=== PATIENT | male | born 2000 | race Caucasian/White ===

== ENCOUNTER 2018-02-22 01:25 | Emergency (ER) | payer MEDICAID ==
[~2018-02-22] VITALS: Ht 165.1 cm; Wt 68.0 kg
== END 2018-02-22 02:00 ==
LOC: ER 01:27
DX: Z04.1 Encounter for examination and observation following transport accident (principal); J45.909 Unspecified asthma, uncomplicated; F12.90 Cannabis use, unspecified, uncomplicated; F15.90 Other stimulant use, unspecified, uncomplicated; F11.90 Opioid use, unspecified, uncomplicated
CPT/HCPCS: 71045; 99283

== ENCOUNTER 2021-09-23 14:40 | Emergency (ER) | payer MEDICAID ==
[~2021-09-23] VITALS: Ht 162.6 cm; Wt 72.7 kg
[2021-09-23 14:46] VITALS: BP 126/86
== END 2021-09-23 15:20 | disposition home or self-care (01) ==
LOC: ER 14:40
DX: Z02.89 Encounter for other administrative examinations (principal); F15.90 Other stimulant use, unspecified, uncomplicated; J45.909 Unspecified asthma, uncomplicated; F12.90 Cannabis use, unspecified, uncomplicated; F11.90 Opioid use, unspecified, uncomplicated
CPT/HCPCS: 99281

== ENCOUNTER 2022-03-31 15:44 | Emergency (ER) | payer MEDICAID ==
[~2022-03-31] VITALS: Ht 162.6 cm; Wt 72.0 kg
[2022-03-31 16:15] VITALS: BP 126/81
[2022-03-31] MEDS ORDERED: HYDROcodone/acetaminophen 5mg/325mg tablet PO ONE (17:25)
[2022-03-31] MEDS ORDERED: HYDR-3965 PO (17:44)
== END 2022-03-31 18:16 | disposition home or self-care (01) ==
LOC: ER 15:44
DX: S92.425A Nondisplaced fracture of distal phalanx of left great toe, initial encounter for closed fracture (principal); M79.675 Pain in left toe(s); J45.909 Unspecified asthma, uncomplicated; F12.90 Cannabis use, unspecified, uncomplicated; F15.90 Other stimulant use, unspecified, uncomplicated; F11.90 Opioid use, unspecified, uncomplicated; Z72.89 Other problems related to lifestyle; Z79.899 Other long term (current) drug therapy; X58.XXXA Exposure to other specified factors, initial encounter; Y93.89 Activity, other specified; Y92.89 Other specified places as the place of occurrence of the external cause; Y99.8 Other external cause status
CPT/HCPCS: 73660; 99283

== ENCOUNTER 2022-05-07 07:25 | Emergency (ER) | payer MEDICAID ==
[~2022-05-07] VITALS: Ht 162.6 cm; Wt 7.0 kg
[2022-05-07 08:04] VITALS: BP 112/72
== END 2022-05-07 11:45 | disposition left against medical advice (07) ==
LOC: ER 07:26
DX: L02.413 Cutaneous abscess of right upper limb (principal); Z53.21 Procedure and treatment not carried out due to patient leaving prior to being seen by health care provider

== ENCOUNTER 2022-05-09 19:19 | Emergency (ER) | payer MEDICAID ==
[~2022-05-09] VITALS: Ht 162.6 cm; Wt 72.7 kg
[2022-05-09 19:27] VITALS: BP 125/84
[2022-05-09] MEDS ORDERED: LIDOcaine 1% W/epiNEPHrine 1:100,000 20ml vial SQ ONE (21:20)
[2022-05-09] MEDS ORDERED: LIDOcaine 1% w/EPI 1:100,000 30ml vial (MDV) SQ ONE (21:30)
[2022-05-09] MEDS ORDERED: CEPH500C82 PO (22:28)
[2022-05-09] MEDS ORDERED: SULF1TAB49 PO (22:28)
[2022-05-09] MEDS ORDERED: cephalexin 500mg capsule PO ONE (22:30)
[2022-05-09] MEDS ORDERED: sulfamethoxazole/trimethoprim DS (800/160mg) tablet PO ONE (22:30)
== END 2022-05-09 22:34 | disposition home or self-care (01) ==
LOC: ER 19:20
DX: L02.01 Cutaneous abscess of face (principal); J45.909 Unspecified asthma, uncomplicated; F15.10 Other stimulant abuse, uncomplicated; F12.10 Cannabis abuse, uncomplicated
CPT/HCPCS: 10060; 99283; A6449

== ENCOUNTER 2022-07-07 02:28 | Emergency (ER) | payer MEDICAID ==
[~2022-07-07] VITALS: Ht 162.6 cm; Wt 72.7 kg
[2022-07-07] MEDS ORDERED: naloxone 0.4 mg/ml inj IV ONE (03:00)
[2022-07-07 03:06] VITALS: BP 117/71
[2022-07-07 05:23] LABS: BASOPHILS % (AUTO) 0.2 % (0-1); EOSINOPHILS % (AUTO) 0.6 % (0-6); HEMATOCRIT 38.5 % (42.0-52.0); HEMOGLOBIN 12.7 g/dl (14.0-17.9); LYMPHOCYTES # (AUTO) 1.5 X10'3 (1.1-4.8); LYMPHOCYTES % (AUTO) 18.1 % (21-51); MEAN CORPUSCULAR VOLUME 81.8 FL (78-98); MEAN PLATELET VOLUME 7.6 FL (7.4-10.4); MONOCYTES # (AUTO) 0.6 X10'3 (0-0.9); MONOCYTES % (AUTO) 6.8 % (2-12); NEUTROPHILS # (AUTO) 6.3 X10'3 (1.8-7.7); NEUTROPHILS % (AUTO) 74.3 % (42-75); PLATELET COUNT 328 X10'3 (140-440); RED CELL DISTRIBUTION WIDTH 13.9 % (11.5-14.5); WHITE BLOOD COUNT 8.5 X10'3 (4.5-11.0)
[2022-07-07 05:45] LABS: ALANINE AMINOTRANSFERASE 21 U/L (12-78); ALBUMIN 2.9 G/DL (3.4-5.0); ALBUMIN/GLOBULIN RATIO 0.6 (1.1-1.5); ALKALINE PHOSPHATASE 111 IU/L (46-116); ANION GAP 6 (8-16); ASPARTATE AMINO TRANSFERASE 25 U/L (10-37); BILIRUBIN,TOTAL 0.4 MG/DL (0.1-1.0); BLOOD UREA NITROGEN 11 MG/DL (7-18); BUN/CREATININE RATIO 11.7 (5.4-32.0); CALCIUM 8.4 MG/DL (8.5-10.1); CHLORIDE 103 MMOL/L (99-107); CREATININE 0.94 MG/DL (0.60-1.10); GLUCOSE 138 MG/DL (70-104); POTASSIUM 3.8 MMOL/L (3.5-5.1); SODIUM 137 MMOL/L (135-145); TOTAL CARBON DIOXIDE 28.3 MMOL/L (24-32); TOTAL PROTEIN 7.8 G/DL (6.4-8.2); eGFR > 90 ML/MIN
== END 2022-07-07 06:14 | disposition home or self-care (01) ==
LOC: ER 02:28
DX: F11.10 Opioid abuse, uncomplicated (principal); J45.909 Unspecified asthma, uncomplicated; F12.10 Cannabis abuse, uncomplicated; F15.10 Other stimulant abuse, uncomplicated
CPT/HCPCS: 36415; 71045; 80053; 85025; 96374; 99284; J2310

== ENCOUNTER 2022-08-09 09:17 | Emergency (ER) | payer MEDICAID ==
[~2022-08-09] VITALS: Ht 162.6 cm; Wt 72.7 kg
[2022-08-09 09:42] VITALS: BP 119/81
[2022-08-09] MEDS ORDERED: dexamethasone sod phosphate 10mg/ml inj PO STA (10:31)
[2022-08-09] MEDS ORDERED: LIDOcaine Viscous 15ml cup MM ONE (10:35)
[2022-08-09 11:18] LABS: BASOPHILS % (AUTO) 0.4 % (0-1); EOSINOPHILS # (AUTO) 0.1 X10'3 (0-0.9); EOSINOPHILS % (AUTO) 0.9 % (0-6); HEMATOCRIT 43.6 % (42.0-52.0); HEMOGLOBIN 14.8 g/dl (14.0-17.9); LYMPHOCYTES # (AUTO) 1.1 X10'3 (1.1-4.8); LYMPHOCYTES % (AUTO) 8.8 % (21-51); MEAN CORPUSCULAR HEMOGLOBIN 27.6 PG (27.0-31.0); MEAN CORPUSCULAR HGB CONC 33.9 g/dL (33.0-36.5); MEAN CORPUSCULAR VOLUME 81.2 FL (78-98); MEAN PLATELET VOLUME 6.8 FL (7.4-10.4); MONOCYTES # (AUTO) 1.2 X10'3 (0-0.9); NEUTROPHILS # (AUTO) 9.6 X10'3 (1.8-7.7); NEUTROPHILS % (AUTO) 79.9 % (42-75); PLATELET COUNT 367 X10'3 (140-440); RED BLOOD COUNT 5.36 X10'6 (4.70-6.10); RED CELL DISTRIBUTION WIDTH 14.3 % (11.5-14.5); WHITE BLOOD COUNT 12.1 X10'3 (4.5-11.0)
[2022-08-09] MEDS ORDERED: normal saline 1000ML IV soln IVB ONE (11:20)
[2022-08-09 11:34] LABS: ALANINE AMINOTRANSFERASE 21 U/L (12-78); ALBUMIN 3.3 G/DL (3.4-5.0); ALBUMIN/GLOBULIN RATIO 0.6 (1.1-1.5); ALKALINE PHOSPHATASE 95 IU/L (46-116); ANION GAP 8 (8-16); ASPARTATE AMINO TRANSFERASE 21 U/L (10-37); BILIRUBIN,TOTAL 0.7 MG/DL (0.1-1.0); BLOOD UREA NITROGEN 15 MG/DL (7-18); BUN/CREATININE RATIO 16.5 (5.4-32.0); CALCIUM 9.4 MG/DL (8.5-10.1); CHLORIDE 99 MMOL/L (99-107); CREATININE 0.91 MG/DL (0.60-1.10); GLUCOSE 111 MG/DL (70-104); POTASSIUM 4.3 MMOL/L (3.5-5.1); SODIUM 136 MMOL/L (135-145); TOTAL CARBON DIOXIDE 28.7 MMOL/L (24-32); TOTAL PROTEIN 8.8 G/DL (6.4-8.2); eGFR > 90 ML/MIN
[2022-08-09 11:43] LABS: MONOTEST NEGATIVE (Neg)
[2022-08-09] MEDS ORDERED: iohexol 300mg/ml 100ml inj. ONE (11:46)
[2022-08-09 12:19] LABS: HIV ANTIBODY 1&2 RAPID NON-REACTIVE (Neg)
[2022-08-09] MEDS ORDERED: LIDOcaine Viscous 15ml cup MM STA (12:56)
== END 2022-08-09 13:18 | disposition home or self-care (01) ==
LOC: ER 09:17
DX: J02.9 Acute pharyngitis, unspecified (principal); J03.90 Acute tonsillitis, unspecified; J45.909 Unspecified asthma, uncomplicated; F12.10 Cannabis abuse, uncomplicated; F15.10 Other stimulant abuse, uncomplicated; F11.10 Opioid abuse, uncomplicated
CPT/HCPCS: 36415; 70360; 70491; 80053; 85025; 86308; 86703; 87081; 87880; 96360; 99285; J1100; J3490; J7030; Q9967

== ENCOUNTER 2024-05-03 15:16 | Emergency (ER) | payer MEDICAID ==
[~2024-05-03] VITALS: Ht 162.6 cm; Wt 75.0 kg
[2024-05-03 18:09] VITALS: BP 114/78; PULSE 67; RESP 18; TEMP 97.8; O2SAT 97
== END 2024-05-03 18:11 | disposition home or self-care (01) ==
LOC: ER 15:16
DX: F11.10 Opioid abuse, uncomplicated (principal); J45.909 Unspecified asthma, uncomplicated; F12.90 Cannabis use, unspecified, uncomplicated
CPT/HCPCS: 99291

== ENCOUNTER 2024-07-01 03:40 | Emergency (ER) | payer MEDICAID ==
[~2024-07-01] VITALS: Ht 162.6 cm; Wt 68.7 kg
[2024-07-01 03:44] VITALS: BP 141/90; PULSE 107; RESP 18; TEMP 97.2; O2SAT 99
[2024-07-01] MEDS ORDERED: ALBU8HFA INH (04:21)
[2024-07-01] MEDS ORDERED: SULF1TAB49 PO (04:21)
[2024-07-01] MEDS: sulfamethoxazole/trimethoprim DS (800/160mg) tablet PO ONE (04:46)
== END 2024-07-01 04:50 | disposition home or self-care (01) ==
LOC: ER 03:41
DX: J45.909 Unspecified asthma, uncomplicated (principal); J06.9 Acute upper respiratory infection, unspecified; B97.89 Other viral agents as the cause of diseases classified elsewhere; L08.9 Local infection of the skin and subcutaneous tissue, unspecified; F12.90 Cannabis use, unspecified, uncomplicated; F15.90 Other stimulant use, unspecified, uncomplicated
CPT/HCPCS: 99283

== ENCOUNTER 2024-07-27 22:51 | Emergency (ER) | payer MEDICAID ==
[~2024-07-27] VITALS: Ht 160 cm; Wt 72.5 kg
[~2024-07-27 22:51] MED LIST: ALBU8HFA INH
[2024-07-27 22:56] VITALS: BP 153/91; PULSE 103; RESP 18; O2SAT 100
[2024-07-27] MEDS ORDERED: SULF1TAB49 PO (23:39)
[2024-07-27] MEDS: ondansetron 4mg rapidly disintigrating tab PO ONE (23:45)
[2024-07-27] MEDS: sulfamethoxazole/trimethoprim DS (800/160mg) tablet PO ONE (23:45)
[2024-07-27 23:47] VITALS: TEMP 97.8
== END 2024-07-27 23:51 | disposition home or self-care (01) ==
LOC: ER 22:52
DX: L73.9 Follicular disorder, unspecified (principal); J45.909 Unspecified asthma, uncomplicated; F12.90 Cannabis use, unspecified, uncomplicated; F11.90 Opioid use, unspecified, uncomplicated; F15.90 Other stimulant use, unspecified, uncomplicated
CPT/HCPCS: 99283

== ENCOUNTER 2024-08-14 19:27 | Emergency (ER) | payer MEDICAID ==
[~2024-08-14] VITALS: Ht 162.6 cm; Wt 72.9 kg
[2024-08-14 19:38] VITALS: BP 129/88; PULSE 88; RESP 16; TEMP 98; O2SAT 96
[2024-08-14] MEDS ORDERED: PRED20TA PO (20:41)
[2024-08-14] MEDS ORDERED: ALBU8HFA PO (20:41)
== END 2024-08-15 00:10 | disposition left against medical advice (07) ==
LOC: ER 19:28
DX: J20.9 Acute bronchitis, unspecified (principal); Z87.891 Personal history of nicotine dependence; Z79.899 Other long term (current) drug therapy
CPT/HCPCS: 71046; 99283

== ENCOUNTER 2025-01-03 14:22 | Emergency (ER) | payer MEDICAID, OTHER ==
[~2025-01-03] VITALS: Ht 175.3 cm; Wt 65.2 kg
[2025-01-03 14:26] VITALS: TEMP 99.1
--- NOTE | 2025-01-03 14:44 | ELECTROCARDIOGRAPH REPORT ---
[facility] Test Date: 2025-01-03 Test Time: 14:41:57 Pat Name: MISSY FIGUEREDO Department: [facility]- Patient ID: [id number] Room: Gender: M [employer] Office: : 2000 Requested By: DAYSI CHURCH Order Number: [id number] Reading MD: Measurements Intervals [place] Rate: 89 P: 64 OR: 121 QRS: 84 QRSD: 94 T: 19 QT: 390 QTc: 475 Interpretive Statements Sinus rhythm Ventricular premature complex Aberrant complex Borderline prolonged QT interval Please click the below link to view image of tracing.
--- NOTE | 2025-01-03 14:58 | Physician Documentation ---
History of Present Illness ~ Chief Complaint: Overdose Stated Complaint: OD Time Seen by MD: 14:31 Primary Medical Doctor: None Mode of Arrival: EMS HPI 24-year-old male presents via EMS for suspected fentanyl overdose. [place] According to ER nurse he did not receive Narcan in route. Patient is currently arousable with painful stimuli Medication Reconciliation Allergies: Coded Allergies: No Known Allergies (Unverified , 05/22/24) Past Medical History Past Medical History: Asthma Past Surgical History: no surgical history Alcohol Use: Occasionally Drug Use: marijuana, methamphetamine, heroin Lives In: Home Review of Systems All Other Systems at this time: Reviewed and Negative ROS As stated above in the HPI, otherwise all systems are reviewed and negative. Physical Exam Vital Signs: Temperature: 99.1, Source: Temporal, Heart Rate: 86, Respiratory Rate: 20, BP: 117/64, Pulse Oximetry: 98, Weight: 65.200 Oxygen Flow Rate: 0 Physical Exam General: somnolent but arousable Respiratory: Lungs clear, no respiratory distress. Cardiovascular: Regular rate and rhythm, no murmurs. Neurologic: Oriented x4. Psychiatric: Normal mood and affect. Progress Results/Orders Results/Orders Orders - DALTON VILLASE[employer] Naloxone 0.4 Mg/Ml Inj (Narcan 0.4mg/Ml (01/03/25 15:30) Completed Orders - [employer] Normal Saline 1000ml (0.9% Sodium Chlori (01/03/25 14:50) Naloxone 0.4 Mg/Ml Inj (Narcan 0.4mg/Ml (01/03/25 14:50) Ondansetron Inj. (Zofran 4mg/2ml Vial) (01/03/25 15:25) Medications Received in ER Medications (Trade) Dose Ordered Sig/Mickey Route PRN Reason Start Time Stop Time Status Last Admin Dose Admin (0.9% sodium chloride (NS) 1000ml IV soln) 1,000 ml ONCE ONCE IVB 01/03/25 14:50 01/03/25 14:52 DC 01/03/25 15:27 1,000 ML (Narcan 0.4mg/ml inj) 0.1 mg ONCE ONCE IV 01/03/25 14:50 01/03/25 14:52 DC 7/15/25 15:26 0.1 MG (Zofran 4mg/2ml vial) 4 mg ONCE ONCE IV 01/03/25 15:25 01/03/25 15:26 DC 01/03/25 15:27 4 MG Vital Signs 01/03/25 01/03/25 01/03/25 14:26 14:31 15:26 Temp 99.1 Pulse 86 89 Resp 20 20 18 B/P (MAP) 117/64 117/88 Pulse Ox 98 100 O2 Flow Rate 0 Medical Decision Making Findings Patient was a observed while in the ED. His EKG is reassuring. He meets all the criteria for likely fentanyl overdose. Been responsive throughout his stay I did provide him one dose of Narcan along with some IV fluids for hydration. When he is safe to discharge the nursing staff will do so. Differential Dx:Considerations: Include: Alcohol abuse, Anxiety, Bipolar disorder, Conversion disorder, Delirium, Depression, Drug Overdose-Accidental, Drug Overdose-Intentional, Encephalopathy, Hallucinations, Homicidal, Liver failure, Panic disorder, Personality disorder, Renal failure, Respiratory failure, Schizophrenia, Substance abuse, Suicidal attempt, Suidical gesture, Other Departure Disposition: 01 HOME / SELF CARE / HOMELESS Impression: Primary Impression: Poisoning by opiate or related narcotic Additional Impression: Opioid abuse Condition: Stable Discharge Instructions: Overdose, Adult Referrals: NO PRIMARY CARE PROVIDER (PCP) Signature Scribe Signature: y Attestation: Scribed for Dalton Villaseñor [employer] by Dalton Scott NP . 01/03/25 14:58 [employer] Jan 03, 2025 14:58
[2025-01-03] MEDS: ondansetron/PF 4mg/2ml inj IV ONE (15:27)
[2025-01-03] MEDS: normal saline 1000ML IV soln IVB ONE (15:27)
[2025-01-03 16:35] VITALS: BP 112/80; PULSE 88; RESP 14; O2SAT 99
== END 2025-01-03 16:40 | disposition home or self-care (01) ==
LOC: ER 14:22
DX: T40.601A Poisoning by unspecified narcotics, accidental (unintentional), initial encounter (principal); F11.10 Opioid abuse, uncomplicated; J45.909 Unspecified asthma, uncomplicated; F12.90 Cannabis use, unspecified, uncomplicated; F15.90 Other stimulant use, unspecified, uncomplicated; Z72.89 Other problems related to lifestyle; Y92.89 Other specified places as the place of occurrence of the external cause
CPT/HCPCS: 93005; 96361; 96374; 96375; 99284; J2310; J2405; J7030; J2312

== ENCOUNTER 2025-01-05 04:52 | Emergency (ER) | payer OTHER ==
[~2025-01-05] VITALS: Ht 162.6 cm; Wt 67.7 kg
--- NOTE | 2025-01-05 05:28 | Physician Documentation ---
History of Present Illness ~ Chief Complaint: See Chief Complaint Stated Complaint: FOOT INFECTION,EAR PAIN Time Seen by MD: 05:13 Primary Medical Doctor: None HPI Patient presents to the emergency room with sores in his feet with associated erythema as well as that has pain in his left ear. He is concerned he has not infection. Tetanus witin 5 years: Yes Medication Reconciliation Allergies: Coded Allergies: No Known Allergies (Unverified , 01/05/25) Past Medical History Past Medical History: Asthma Past Surgical History: no surgical history Alcohol Use: Occasionally Drug Use: marijuana, methamphetamine, heroin Lives In: Home Review of Systems ROS All review of systems negative except as per HPI Physical Exam Vital Signs: Temperature: 98.3, Source: Temporal, Heart Rate: 99, Respiratory Rate: 16, BP: 116/81, Pulse Oximetry: 99, Weight: 67.700 Oxygen Flow Rate: 0 Physical Exam General: Patient is awake, alert, oriented x4 in no acute distress Head: Normocephalic and atraumatic. Eyes: Conjunctival normal. EOMI. PERRL. ENT: Mucous membranes moist. Furuncle noted in patient's left ear canal Neck: Supple, trachea is midline. Chest: Clear to auscultation bilaterally without rales, rhonchi, or wheezes. There is no accessory muscle use or retractions. Cardiac: RRR without murmurs, gallops, or rubs. Extremities: Noted fungal infection between bilateral feet between toes along with what appears to be a staph infection to the dorsum of left 1st digit measuring 2 cm x 2 cm Progress Results/Orders Results/Orders Vital Signs 01/05/25 04:54 Temp 98.3 Pulse 99 Resp 16 B/P (MAP) 116/81 Pulse Ox 99 O2 Flow Rate 0 Medical Decision Making Findings Patient presents to the emergency room with foot and ear complaints as per HPI. Differentials include but are not limited to abscess, cellulitis, fungal infection, sepsis. Patient's vitals are stable and he had not feel emergent labs or imaging is necessary. We will empirically treat for staph infection as well as fungal infection. Departure Disposition: HOME / SELF CARE / HOMELESS Impression: Primary Impression: Fungal infection of foot Additional Impression: Staph infection Condition: Stable Referrals: NO PRIMARY CARE PROVIDER (PCP) Prescriptions Sulfamethoxazole/Trimethoprim (Bactrim Ds Tablet) 800 Mg-160 Mg Tablet 1 TAB PO Q12H for 10 Days, #20 TAB Prov: DEREK BURCIAGA MD 01/05/25 Clotrimazole (Lotrimin Af) 12 Gm Cream.gm. 1 APPLIC TOP Q12H for 7 Days, #24 GM 0 Refills apply to affected area(s) Prov: DEREK BURCIAGA MD 01/05/25 Education Educated: Patient Educated regarding: diagnosis, treatment, need for follow up Signature Scribe Signature: No scribe Attestation: The note accurately reflects work and decisions made by me.Derek Burciaga MD 01/05/25 05:29 DEREK BURCIAGA MD Jan 05, 2025 05:28
[2025-01-05] MEDS ORDERED: SULF1TAB49 PO (05:29)
[2025-01-05] MEDS ORDERED: CLOT12CR TOP (05:29)
[2025-01-05 05:35] VITALS: BP 116/81; PULSE 99; RESP 12; TEMP 98.3; O2SAT 100
== END 2025-01-05 05:37 | disposition home or self-care (01) ==
LOC: ER 04:52
DX: B35.3 Tinea pedis (principal); L08.9 Local infection of the skin and subcutaneous tissue, unspecified; J45.909 Unspecified asthma, uncomplicated; F12.90 Cannabis use, unspecified, uncomplicated; F15.90 Other stimulant use, unspecified, uncomplicated; F11.90 Opioid use, unspecified, uncomplicated; Z72.89 Other problems related to lifestyle
CPT/HCPCS: 99283